=== PATIENT | female | born 1930 | race Caucasian/White ===

== ENCOUNTER 2019-09-20 23:00 | Emergency (ER) | payer MEDICARE, BC ==
[~2019-09-20] VITALS: Ht 165.1 cm; Wt 38.6 kg
[~2019-09-20 23:00] MED LIST: CHOL20004 PO; FEXO1TAB11 PO; LEVE500T9 PO
--- NOTE | 2019-09-20 23:27 | NUR ---
Dr. Staples at bedside for MSE.
[2019-09-20] MEDS ORDERED: IV NORMAL SALINE 1000 ML BAG IV ONE (23:30)
--- NOTE | 2019-09-21 00:05 | NUR ---
Pt out of ER for CT.
[2019-09-21 00:09] LABS: BASOPHILS % (AUTO) 0.4 % (0.0-2.0); EOSINOPHILS # (AUTO) 0.1 K/uL (0.0-0.7); EOSINOPHILS % (AUTO) 0.5 % (0.0-7.0); HEMATOCRIT 38.6 % (31.2-41.9); HEMOGLOBIN 12.6 g/dL (10.9-14.3); LYMPHOCYTES # (AUTO) 1.8 K/uL (20.0-40.0); LYMPHOCYTES % (AUTO) 14.9 % (20.5-51.5); MEAN CORPUSCULAR HEMOGLOBIN 27.5 uug (24.7-32.8); MEAN CORPUSCULAR HGB CONC 33 g/dL (32.3-35.6); MEAN CORPUSCULAR VOLUME 83.9 fL (75.5-95.3); MONOCYTES # (AUTO) 1.4 K/uL (2.0-10.0); MONOCYTES % (AUTO) 11.5 % (0.0-11.0); NEUTROPHILS % (AUTO) 72.7 % (38.5-71.5); PLATELET COUNT (AUTO) 285 K/uL (179-408); WHITE BLOOD COUNT (AUTO) 12.4 K/uL (3.8-11.8)
--- NOTE | 2019-09-21 00:23 | NUR ---
Pt back to ER from CT
[2019-09-21 01:15] LABS: CARBON DIOXIDE 22 mmol/L (21-32); CHLORIDE 94 mmol/L (98-107); GLUCOSE 119 mg/dL (74-106); POTASSIUM 3.2 mmol/L (3.5-5.1); UREA NITROGEN, BLOOD 24 mg/dL (7-20)
[2019-09-21 01:16] LABS: ALANINE AMINOTRANSFERASE 22 U/L (14-59); ALKALINE PHOSPHATASE 108 U/L (50-136); ASPARTATE AMINOTRANSFERASE 15 U/L (15-37); BILIRUBIN,DIRECT 0.1 mg/dL (0.0-0.2); BILIRUBIN,TOTAL 0.5 mg/dL (0.1-1.0)
[2019-09-21 01:17] LABS: TOTAL PROTEIN, SERUM 8.6 g/dL (6.4-8.2)
--- NOTE | 2019-09-21 01:17 | NUR ---
Inserted betancur catheter, pt tolerated procedure well, urine sample collected, sent to lab.
[2019-09-21 01:41] LABS: *BILIRUBIN,URIN NEGATIVE (NEGATIVE); *BLOOD, URINE NEGATIVE (NEGATIVE); *CLARITY,URINE CLEAR (CLEAR); *COLOR,URINE YELLOW (YELLOW); *KETONES,URINE NEGATIVE (NEGATIVE); *UROBILINOGEN,URINE 0.2 E.U./dl (NORMAL); LEUKOCYTE ESTERASE ,URINE NEGATIVE (NEGATIVE); NITRITE, URINE NEGATIVE (NEGATIVE); UGLUCOSE NEGATIVE (NEGATIVE)
--- NOTE | 2019-09-21 02:28 | NUR ---
Patient discharged to home in stable conditon. Written and verbal after care instructions given. Patient verbalizes understanding of instructions. Pt ambulated out of ER with steady gait, accompanied by family, VSS, no acute signs of distress, all belongings taken, IV site discontinued, to be driven home by family via private vehicle.
[2019-09-21 02:40] VITALS: BP 115/67
== END 2019-09-21 02:40 | disposition home or self-care (01) ==
LOC: ER 23:05
DX: R41.0 Disorientation, unspecified (principal); F03.90 Unspecified dementia, unspecified severity, without behavioral disturbance, psychotic disturbance, mood disturbance, and anxiety; R44.3 Hallucinations, unspecified; E86.0 Dehydration; Z88.0 Allergy status to penicillin; Z88.8 Allergy status to other drugs, medicaments and biological substances; Z79.899 Other long term (current) drug therapy
CPT/HCPCS: 36415; 70030-TC; 70450; 71045; 83605; 85025; 85730; 87040; 87086; 87400; 93005; A4663; C1758; J7030